=== PATIENT | male | born 1965 | race Caucasian/White ===

== ENCOUNTER 2017-02-06 18:40 | Emergency (ER) | payer BC ==
[~2017-02-06] VITALS: Ht 167.6 cm; Wt 94.3 kg
[2017-02-06] MEDS ORDERED: KEFLEX500 M1 PO (18:58)
[2017-02-06] MEDS ORDERED: NAPROSYN500 MG PO (18:58)
== END 2017-02-06 19:44 | disposition home or self-care (01) ==
LOC: ED
DX: S61.212A Laceration without foreign body of right middle finger without damage to nail, initial encounter (principal); R03.0 Elevated blood-pressure reading, without diagnosis of hypertension; Z90.49 Acquired absence of other specified parts of digestive tract; W45.8XXA Other foreign body or object entering through skin, initial encounter; Y93.89 Activity, other specified; Y92.818 Other transport vehicle as the place of occurrence of the external cause; Y99.9 Unspecified external cause status

== ENCOUNTER 2018-04-08 17:12 | Emergency (ER) | payer BC ==
[~2018-04-08] VITALS: Ht 177.8 cm; Wt 88.5 kg
[~2018-04-08 17:12] MED LIST: KEFLEX500 M1 PO; NAPROSYN500 MG PO
[2018-04-08] MEDS ORDERED: JANUVIA100 MG PO (17:14)
[2018-04-08] MEDS ORDERED: PROCTOSOL-HC28.35 GM R (17:17)
[2018-04-08] MEDS ORDERED: FENOFIBRATE145 M1 PO (17:26)
[2018-04-08] MEDS ORDERED: GLIMEPIRIDE4 M1 PO (17:26)
[2018-04-08] MEDS ORDERED: SIMVASTATIN40 MG PO (17:26)
[2018-04-08] MEDS ORDERED: METFORMIN HYD1000 MG PO (17:27)
[2018-04-08] MEDS ORDERED: COLACE100 MG PO (17:28)
[2018-04-08] MEDS ORDERED: MIRALAX POWDER17 G1 PO (17:28)
== END 2018-04-08 17:35 | disposition home or self-care (01) ==
LOC: ED 17:12
DX: K64.4 Residual hemorrhoidal skin tags (principal); K59.00 Constipation, unspecified; Z79.84 Long term (current) use of oral hypoglycemic drugs; Z79.899 Other long term (current) drug therapy; Z90.49 Acquired absence of other specified parts of digestive tract